=== PATIENT | male | born 1970 | race Caucasian/White ===

== ENCOUNTER 2020-05-24 13:08 | Outpatient (CLI) | payer OTHER, SELFPAY ==
--- NOTE | 2020-05-24 14:06 | CT_ITS ---
WS: [id number] CT scan of the abdomen and pelvis with IV contrast. Additional two-dimensional coronal and sagittal r econstruction was performed. 05/24/2020 Clinical Data: ACUTE ABDOMINAL PAIN Comparison: CT abdomen and pelvis, 03/02/2019. DLP: 1058.[address] scans at [facility] use at least one of these dose optimization techniques: automat ed exposure control; mA and/or kV adjustment per patient size (includes targeted exams where dose is matched to clinical indication); or iterative reconstruction. Findings: The lower lungs show no nodules, masses or effusions. There is a small hiatal hernia. The gallbladder, spleen and adrenal glands are normal. Liver shows several small low-density lesions which are probably cysts. No liver masses are noted. The head of the pancreas show swelling with a minimal amount of surrounding peripancreatic fluid. The distal pancreas shows a dilated pancreatic duct. The kidneys show equal bilateral contrast excretion with with a 3.77 left renal cortical cyst. No radha al calculi, hydronephrosis or masses are seen. The abdominal aorta is normal in size with minimal valerio cification in the wall. No abscess, adenopathy, ascites, mass, obstruction or free air is seen. No appendicitis or diverticulitis is seen. Numerous sigmoid diverticula. The stomach is normal. The s mall bowel is minimally dilated with fluid and in the loops which can be seen with a gastroenteritis or as a reaction to the pancreatitis. The colon has fecal material within. The bladder is unremarkabl e. No inguinal hernia is seen. The prostate is enlarged. No inguinal hernia is present. There is a spondylolisthesis with bilateral spondylolysis of L5-S1 of 0.[address]/CT abdomen pelvis w con* [id number] Impression: 1. Pancreatitis at the head of the pancreas with peripancreatic fluid but no ab scess or pseudocyst. 2. Dilated small bowel most likely from gastroenteritis or reaction to the liao creatitis.
[2020-05-24] MEDS: iohexol 300 mg/mL 100 mL Btl IV (14:19)
== END 2020-05-24 13:09 | disposition home or self-care (01) ==
LOC: RAD 13:13 → RADWPI 14:01
PROVIDERS: PCP Physician Assistant; Visit Provider Physician Assistant
DX: R10.9 Unspecified abdominal pain (principal); K85.90 Acute pancreatitis without necrosis or infection, unspecified
CPT/HCPCS: 74177; Q9967

== ENCOUNTER 2022-09-04 12:15 | Outpatient (CLI) | payer OTHER, SELFPAY ==
--- NOTE | 2022-09-04 | CT_ITS ---
WS: [id number] CT ABDOMEN PELVIS TECHNIQUE: Contrast-enhanced CT of the abdomen and pelvis with coronal and sagittal reformatted image s. CLINICAL INFORMATION: ALCOHOL INDUCED PANCREATITIS COMPARISON: CT May 24, 2020 and DLP: 345.[address] scans at [facility] use at least one of these dose optimization techniques: automated e xposure control; mA and/or kV adjustment per patient size (includes targeted exams where dose is matc hed to clinical indication); or iterative reconstruction. FINDINGS: Lung bases are well aerated. Hepatomegaly with coarse hepatic heterogeneous enhancement. Intrahepatic biliary ductal dilatation is progressed compared to previous. Normal portal vein and splenic vein. P ancreatic calcifications compatible with chronic pancreatitis. Dilated common bile duct measuring 13. 3 mm. Diffuse lobulated pancreatic ductal dilatation. Dominant cystic lesion involving the body of th e pancreas with dilatation of the pancreatic duct measuring. Dominant cystic lesion measures 2.9 x 2. 6 cm. Additional smaller satellite low-attenuation cystic lesions about the body and head of the panc reas suspicious for small pseudocysts. Dense calcification involving the head of the pancreas. Findin gs likely due to chronic pancreatitis. Mucinous cystic neoplasm not excluded. Consider endoscopic ult rasound in further evaluation. Mild gallbladder wall thickening and enhancement. No pericholecystic fluid. Normal spleen. Adrenal gl ands are normal. Normal renal parenchymal enhancement. Bilateral renal cysts. Portal vein and splenic vein are patent. A few prominent LEFT periaortic and retroperitoneal lymph nodes measuring up to 11 mm in short axis dimension. Adrenal glands are normal. SMV is patent. Compression of the splenic vein by the dominant cystic lesion. Additional prominent peripancreatic and mesenteric lymph nodes along the mesenteric root Diffuse bladder wall thickening. Enlarged heterogeneously enhancing prostate measuring 3.6 cm. Sigmoi d diverticulosis. No evidence of acute diverticulitis. No high-grade small or large bowel obstruction . Normal appendix in the RIGHT lower quadrant. Normal GE junction. A few prominent loops of fluid-lazara led small bowel in the pelvis with submucosal enhancement similar to previous can be seen with small bowel enteritis. Grade 1 anterolisthesis L5 on S1 measuring 5.7 mm. Bilateral spondylolysis. A few in cidental hepatic cysts. CT/CT abdomen pelvis w con* [id number] IMPRESSION: 1. Hepatomegaly with fibrofatty changes. Intrahepatic biliary ductal dilatatio n is progressed compared to previous. 2. Pancreatic calcifications compatible with chronic pancreatitis. 3. Dominant cystic lesion involving the mid body of the pancreas measuring 2.6 x 2.9 cm which appears to communicate with the pancreatic duct likely represen ting pseudocyst in the setting of chronic pancreatitis. Cystic neoplasm not ent irely excluded. Consider endoscopic ultrasound for further evaluation. 4. Diffuse dilatation of the pancreatic duct with a few additional small adjac ent cystic lesions likely pseudocysts. 5. Dilatation of the common bile duct measuring 13.3 mm This can be further ev aluated with MRCP or ERCP. 6. Tiny calcification near the cystic duct of the gallbladder suspicious for c holelithiasis. Gallbladder can be further evaluated with ultrasound. 7. Prominent mesenteric root, peripancreatic, periaortic and retroperitoneal l ymph nodes measuring 10 to 11 mm are indeterminant. 8. Fluid distended small bowel with mucosal enhancement can be seen with small bowel enteritis. This is similar to 2020 9. Prominent prostate measuring 3.6 cm. Recommend correlation PSA.
[2022-09-04] MEDS: iohexol 350 mg/mL 500 mL Btl (per mL) IV (13:26)
== END 2022-09-04 12:16 | disposition home or self-care (01) ==
PROVIDERS: PCP Physician Assistant; Visit Provider Physician Assistant
DX: K86.0 Alcohol-induced chronic pancreatitis (principal)
CPT/HCPCS: 74177; Q9967

== ENCOUNTER 2025-01-06 09:35 | Observation (INO) | payer OTHER, SELFPAY ==
--- OUTSIDE RECORDS SUMMARY | 2023-12-22 08:00 | XMS_ITS ---
Author Organization [facility] Address [address] [place] [address] Care Team Providers Care Electric Power Superintendent Name Role Phone Laura Manjarrez Primary Care Provider Fanny Dodd Unavailable [phone] Allergies Allergen (clinical drug ingredient) Drug/Non Drug Allergy documented on EMR Reaction Allergy Type Onset Date Status Substance with sulfonamide structure and antibacterial mechanism of action (substance) Sulfa Antibiotics Unknown Drug Allergy Active REASON FOR VISIT Screening for colon cancer Medications Medication SIG (Take, Route, Frequency, Duration) Notes Start Date End Date Status Vitamin D3 25 MCG (1000 UT) 1 capsule Orally Twice a day Active One Daily - 1 tablet Orally Once a day Active Morphine Sulfate ER 30 MG 1 tablet Orall y every 12 hrs Active Social History Tobacco Use: Social History Observation Description Date Details (start date - stop date) Current Smoker NA - NA xTobacco Use/Smoking Question Answer Notes Are you a current smoker How often do you smoke cigarettes? every day How many cigarettes a day do you smoke? 21-30 Encounters Encounter Location Date Provider Diagnosis [facility] [address] [place] [address] 12/22/2023 Fanny Marsh Screen for colon cancer Z12.11 Assessments Encounter Date Diagnosis (ICD Code) Assessment Notes Treatment Notes Treatment Clinical Notes Section Notes 12/22/2023 Screen for colon cancer (ICD-10 - Z12.11) Proceed with average risk colonoscopy screening today. Plan Of Treatment Treatment Notes Assessment Notes Screen for colon cancer Proceed with ave rage risk colonoscopy screening today. 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 Screening for colon cancer. * HPI: P rovider Note: Mr. Smith is a 53-year-old male patient presenting today for average risk screening colonoscopy. He has had no prior colonoscopy. 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 * ROS: G eneral - Multi System: Constitutional D enies fever, chills, body aches. . C ardiovascular D enies c hest pain, palpitations or syncope. R espiratory D enies shortness of breath. G astrointestinal S ee HPI. . * Medical History: C hronic pancreatitis. * Surgical History: E GOLD LEAF ROLLER 06/05. * Hospitalization/Major Diagno stic Procedure: [facility] . * Family History: F ather: alive. M other: alive. 1 daughter(s) - healthy. . No history of colon cancer in family. * Social History: T obacco Use: x Tobacco Use/Smoking A re you a c urrent smoker H ow often do you smoke cigarettes? e very day H ow many cigarettes a day do you smoke? 2 1-30 * Medications: T aking Morphine Sulfate ER 30 MG Tablet Extended Release 1 tablet Orally every 12 hrs , Taking One Daily - Tablet 1 tablet Orally Once a day , Taking Vitamin D3 25 MCG (1000 UT) Capsule 1 capsule Orally Twice a day * Allergies: S ulfa Antibiotics. Objective: * Vitals: * Examination: G eneral Examination: GENERAL APPEARANCE: A lert, comfortable, in no acute distress. HEART: R egular rate and rhythm.. LUNGS: N on-labored respirations. Clear bilaterally. Symmetrical.. ABDOMEN: N ormal, Soft, Non-tender, positive bowel sounds.? Assessment: * Assessment: 1. S creen for colon cancer - Z12.11 (Primary) Plan: * Treatment: * Billing Information: * Visit Code: * Procedure Codes: * Electronic signature of Akira Marsh MD on 01/06/2025 at 09:42 AM CDT Sign off status: Pending * Provider: Verna Marsh MD Date: 12/22/2023 Generated for Printi ng/Fajagrutig/eTransmitting on: 01/06/2025 09:42 AM CDT History and Physical Notes * HPI (History of Present Illness) Category Sub-Category Detail Notes Category Not es Provider Note Mr. Smith is a 53-year-old male patient presenting today for average risk screening colonoscopy. He has had no prior colonoscopy. 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 Examination Category Sub-Category Detail Notes Category Not es General Examination GENERAL APPEARANCE: Alert, c omfortable, in no acute distress HEART: Regular rate and rhy thm. LUNGS: Non-labored respirat ions. Clear bilaterally. Symmetrical. ABDOMEN: Normal, Soft, Non-te nder, positive bowel sounds
--- OUTSIDE RECORDS SUMMARY | 2024-11-17 03:00 | XMS_ITS ---
Author Organization [facility] Address [address] [place] [address] Care Team Providers Care Real Estate Legal Assistant Name Role Phone Laura Manjarrez Primary Care Provider Fanny Dodd Unavailable [phone] REASON FOR VISIT 1 year F/U-Alcohol Induced Chronic Pancreatitis Encounters Encounter Location Date Provider Diagnosis [facility] [address] [place] [address] 11/17/2024 Fanny Marsh Plan Of Treatment No Information Progress Notes * LUISAsh TDOB:[birth year] (54 yo M)Acc No.[id number]:11/17/2024 Progress Notes Patient: Ash LUCAS Provider: Verna Marsh MD :1970 A ge:54 Y S ex:Male Date:11/17/2024 Address:[address], [address], [id number] Pcp:JANE Swan Subjective: * Chief Complaints: * 1 . 1 year F/U-Alcohol Induced Chronic Pancreatitis. * Medical History: Objective: * Vitals: Assessment: Plan: * Treatment: * Billing Information: * Visit Code: * Procedure Codes: * Electronic signature of Akira Marsh MD on 01/06/2025 at 09:43 AM CDT Sign off status: Pending * Provider: Verna Marsh MD Date: 11/17/2024 Generated for Rogei johnny/Katty/eTransmitting on: 01/06/2025 09:43 AM CDT
[2025-01-06] VITALS (11 sets, daily range): BP systolic 100–132; BP diastolic 66–94; PULSE 77–87; RESP 16–18; TEMP 36.6–36.7; O2SAT 94–100; BMI 13.5
--- OUTSIDE RECORDS SUMMARY | 2025-01-06 09:43 | XMS_ITS | Patient Health Record ---
Author Organization [facility] Address [address] [place] [address] Care Team Providers Care Theatrical Performer Name Role Phone Laura Manjarrez Primary Care Provider Fanny Dodd Unavailable [phone] Allergies Allergen (clinical drug ingredient) Drug/Non Drug Allergy documented on EMR Reaction Allergy Type Onset Date Status Substance with sulfonamide structure and antibacterial mechanism of action (substance) Sulfa Antibiotics Unknown Drug Allergy Active Reason For Referral No Information Medications Medication SIG (Take, Route, Frequency, Duration) Notes Start Date End Date Status Vitamin D3 25 MCG (1000 UT) 1 capsule Orally Twice a day Active One Daily - 1 tablet Orally Once a day Active Morphine Sulfate ER 30 MG 1 tablet Orall y every 12 hrs Active Golytely 236 GM Take ml as directed Orally split dose for 2 days 11/12/2023 Active Reglan 10 MG 1 tablet Orally Once for 1 days 11/12/2023 Active Social History Tobacco Use: Social History Observation Description Date Details (start date - stop date) Current Smoker NA - NA xTobacco Use/Smoking Question Answer Notes Are you a current smoker How often do you smoke cigarettes? every day How many cigarettes a day do you smoke? 21-30 Alcohol Screen (Audit-C) Question Answer Notes Did you have a drink containing alcohol in the p ast year? 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 Problem 308217975 Encounter for removal of biliary stent (Z46.89) Active confirmed Problem 032852279 Pancreatic pseudocyst (K86.3) Active confirmed Problem 668449466 Biliary stricture (K83.1) Active confirmed Encounters Encounter Location Date Provider Diagnosis [facility] [address] [place] [address] 01/12/2024 Fanny Marsh Plan Of Treatment Pending Test Test Name Order Date CA 19-9 [id number] 11/12/2023 Pancreatic Elastase Fecal--98932 024 Colonoscopy, Average Risk Screening-G012 1 11/12/2023 ERCP with Stent Removal or Change 2023 Future Test Test Name Order Date Hepatic Function Panel 93681 01/02/2024 Insurance Providers Payer Name Payer Address Payer Phone Subscriber Number Group Number Insured Name Patient Relationship to Insured Coverage Start Date Coverage End Date [employer] [address] [place] [phone] [id number] Ash Smith Self - patient is the insured Medical (General) History Medical History History ICD Code chronic pancreatitis Surgical History Surgery Date(Month/Year) ERCP 06/05 Hospitalization History Reason Date(Month/Year) [facility]
[2025-01-06] MEDS: sodium chloride 0.9% 1,000 ML 999 ML IV (09:50)
--- NOTE | 2025-01-06 09:55 | PC.PHAR ---
Addendum entered by Nadia Bundy 01/06/25 10:05: Laura Hewitt nurse is faxing pt information and previous medications pt stated he was taking from yesterday's visit. Original Note: Pt states Dr Hewitt will be prescribing several more medications.
--- NOTE | 2025-01-06 09:56 | ED_ITS ---
HPI - General Adult 2 General: Chief complaint: General Medical Stated complaint: HIGH BLOOD SUGAR Time Seen by Provider: 01/06/25 09:37 History of Present Illness: 54-year-old man with a history of chroni c pancreatitis who presents the emergency room with concerns for hyperglycemia. He says he has not knowing that he has high blood sugars or diabetes previous to this. He says labs were done in clinic yesterday and he was told today that his sugar was greater than 1000. He actually called the ambulance for lift assist but then ended up coming to the emergency room because of the sugars. Overall he says he does not feel ill at this point. No new pain complaints. No vomiting. Related Data Home Medications ?Medication ?Instructions ?Recorded ?Confirmed ascorbic acid (vitamin C) 500 mg 500 mg PO DAILY 01/0601/06/25 tablet (Vitamin C) aspirin 81 mg tablet,delayed 81 mg PO DAILY 01/06/25 0 01/06/25 release cholecalciferol (vitamin D3) 25 25 mcg PO DAILY 01/06/25 mcg (1,000 unit) tablet (Vitamin D3) hydrocodone 10 mg-acetaminophen 1 tab PO DAILY PRN Jennifer n 01/06/25 01/06/25 325 mg tablet insulin glargine 100 unit/mL (3 10 unit SUBCUT BEDTIME 01/06/25 01/06/25 mL) subcutaneous pen methocarbamol 500 mg tablet 1,000 mg PO Q6H PRN muscle spasms 01/06/25 01/06/25 Allergies Allergy/AdvReac Type Severity Reaction Status Date / Time No Known Allergies Allergy Verified 01/06/25 09:41 Review of Systems 2 Narrative: Constitutional symptoms: Negative except as documented in HPI. Skin symptoms: Negative except as documented in HPI. Eye symptoms: Negative except as documented in HPI. ENMT symptoms: Negative except as documented in HPI. Respiratory symptoms: Negative except as documented in HPI. Cardiovascular symptoms: Negative except as documented in HPI. Gastrointestinal symptoms: Negative except as documented in HPI. Genitourinary symptoms: Negative except as documented in HPI. Musculoskeletal symptoms: Negative except as documented in HPI. Neurologic symptoms: Negative except as documented in HPI. Psychiatric symptoms: Negative except as documented in HPI. Endocrine symptoms: Negative except as documented in HPI. Physical Exam 2 Narrative: EXAM NARRATIVE: General: Alert, no acute distress. Cachectic appearing Skin: Warm, dry. Head: Normocephalic, atraumatic. Neck: Supple, trachea midline. Eye: Extraocular movements are intact. Ears, nose, mouth and throat: mucosa moist. Cardiovascular: Regular, Normal peripheral perfusion. Respiratory: Lungs are clear to auscultation, respirations are non-labored, breath sounds are equal, Symmetrical chest wall expansion. Gastrointestinal: Soft, Nontender, Non distended Musculoskeletal: Normal ROM, no deformity. Neurological: Alert and oriented, No focal neurological deficit observed. Psychiatric: Cooperative, appropriate mood & affect. Course 2 Vital Signs: Vital signs: Vital Signs Temperature 98.1 F 01/06/25 09:37 Pulse Rate 87 01/06/25 09:37 Respiratory Rate 18 01/06/25 09:37 Blood Pressure 117/80 01/06/25 09:37 Pulse Oximetry 100 01/06/25 09:37 Oxygen Delivery Me thod Room Air 01/06/25 09:37 MDM - General Adult Medical Decision Making Medical decision making: Differential diagnosis for the patient with hyperglycemia would include but not be limited to and would be based on the above HPI review of systems and physical exam: DKA. Dehydration. Renal failure. Concern for electrolyte abnormalities. Concern for underlying infection that might result in hyperglycemia. Medical non-compliance. Orders placed to evaluate differential diagnosis of the patient with hyperglycemia are based on the above differential, HPI and physical exam. Lab Review: Laboratory results were reviewed and interpreted by myself the emergency room physician. No leukocytosis. No anemia. No renal failure. Glucose is 474. Ketone positive. However blood gas is not acidotic. 7.38/41/85. I reviewed the patient's medical record. Records were sent with the patient. His hemoglobin A1c was 13.6. I spoke with his PCP who says that it was 5 just 6 months ago. With his history of pancreatic issues and him being thin and not obese concerned that this is pancreatic insufficiency more like a type 1 diabetes. Reexamination: 1 L of fluids and 10 units of insulin were given. No focal motor deficits no altered mental status. Consultation: I spoke with the patient's primary care provider. She is requesting that the patient be admitted, primarily for education and initiation of sliding scale insulin and long-acting insulin. Also he could probably use some further hydration and to get a little better control of his glucose. Consultation: Spoke with Dr. Marcos who agrees to observe the patient overnight and hopefully we can get some education and get him started on appropriate insulin regimen. Assessment and plan: New onset diabetes Hyperglycemia Dehydration ?1 L normal saline bolus. 10 units IV insulin. -I discussed the patient with the hospitalist on-call who is admitting the patient. - Discussed findings and plan with patient. Answered any questions. - All laboratory values were reviewed and interpreted personally by myself, the ER physician - All imaging was reviewed and interpreted personally by myself, the ER physician. - Evaluation and treatment of this problem were appropriate in the emergency setting Lab Data 01/06/25 10:07 01/06/25 10:07 Laboratory Results WBC 8.56 10^3/uL (3.29-11.43) 01/06/25 10:07 RBC 4.12 10^6/uL (3.85-5.65) 01/06/25 10:07 Hgb 12.10 g/dL (11.27-16.99) 01/06/25 10:07 Hct 37.6 % (37-53) 01/06/25 10:07 MCV 91.3 fl (82-101) 01/06/25 10:07 MCH 29.4 pg (27-33) 01/06/25 10:07 MCHC 32.2 g/dL (30-55) 01/06/25 10:07 RDW 14.6 % (12.1-15.1) 01/06/25 10:07 Plt Count 303 10^3/cmm (157-399) 01/06/25 10:07 MPV 11.4 fL (7.4-10.4) H 01/06/25 10:07 Neut % (Auto) 73.2 % 01/06/25 10:07 Lymph % (Auto) 18.5 % 01/06/25 10:07 Armstrong % (Auto) 6.4 % 01/06/25 10:07 Eos % (Auto) 0.7 % 01/06/25 10:07 Baso % (Auto) 0.6 % 01/06/25 10:07 Neut # (Auto) 6.27 10^3/uL (1.8-7.7) 01/06/25 10:07 Lymph # (Auto) 1.6 10^3/uL (0.8-4.8) 01/06/25 10:07 Armstrong # (Auto) 0.6 10^3/uL (0.2-0.9) 01/06/25 10:07 Eos # (Auto) 0.1 10^3/uL (0.0-0.8) 01/06/25 10:07 Baso # (Auto) 0.1 10^3/uL (0.0-0.1) 01/06/25 10:07 Nucleated RBC % (auto) 0 % 01/06/25 10:07 Nucleated RBCs # 0.0 /100WBC 01/06/25 10:07 Specimen Type Arterial 01/06/25 10:16 Sample Site Radial, left 01/06/25 10:16 ABG pH 7.38 (7.35-7.45) 01/06/25 10:16 ABG pCO2 41.3 mmHg (35-45) 01/06/25 10:16 ABG pO2 85.2 mmHg (80.0-100.0) 01/06/25 10:16 ABG PO2/FiO2 Ratio 405 01/06/25 10:16 ABG HCO3 24.6 mmol/L (22-26) 01/06/25 10:16 ABG O2 Saturation 98.2 01/06/25 10:16 ABG Base Excess -0.5 mmol/L (-2.0-2.0) 01/06/25 10:16 Sandeep Test Pos 01/06/25 10:16 A-a O2 Gradient 1.7 mmHg (5-10) L 01/06/25 10:16 Hematocrit 33.2 % (42-52) L 01/06/25 10:16 Hgb O2 Saturation 83.5 % (95-100) L 01/06/25 10:16 Carboxyhemoglobin 14.7 %THgb (0.4-20.1) 01/06/25 10:16 Methemoglobin 0.2 % (0.4-1.5) L 01/06/25 10:16 Total Hemoglobin 10.8 g/dL (14-18) L 01/06/25 10:16 Sodium 134.0 mmol/L (131-143) 01/06/25 10:16 Potassium 3.5 mmol/L (3.5-5.0) 01/06/25 10:16 Glucose 428.0 mg/dL (70-115) H 01/06/25 10:16 Ionized Calcium 1.2 mmol/L (1.1-1.4) 01/06/25 10:16 O2 Delivery Device Room air 01/06/25 10:16 FiO2 21.0 % 01/06/25 10:16 [employer] Teacher ID glc 01/06/25 10:16 Sodium 133 mmol/L (136-145) L 01/06/25 10:07 Potassium 4.5 mmol/L (3.5-5.1) 01/06/25 10:07 Chloride 89 mmol/L (98-107) L 01/06/25 10:07 Carbon Dioxide 24 mmol/L (22-29) 01/06/25 10:07 Anion Gap 24.5 (5-19) H 01/06/25 10:07 BUN 10 mg/dL (6-20) 01/06/25 10:07 Creatinine 0.6 mg/dL (0.7-1.2) L 01/06/25 10:07 GFR Calculation 140.9 mL/min (90-130) H 01/06/25 10:07 Glucose 474 mg/dL (65-115) H 01/06/25 10:07 Calculated Osmolality 296 mOsm/kg (285-295) H 01/06/25 10:07 Lactic Acid 1.3 mmol/L (0.5-2.2) 01/06/25 10:07 Calcium 9.9 mg/dL (8.5-10.5) 01/06/25 10:07 Total Bilirubin 0.4 mg/dL (0.15-1.2) 01/06/25 10:07 AST 13 U/L (0-40) 01/06/25 10:07 ALT 18 U/L (0-41) 01/06/25 10:07 Alkaline Phosphatase 73 U/L (40-130) 01/06/25 10:07 C-Reactive Protein 99.1 mg/L (0.0-4.9) H 01/06/25 10:07 Total Protein 7.5 g/dL (6.6-8.7) 01/06/25 10:07 Albumin 3.8 g/dL (3.5-5.2) 01/06/25 10:07 Globulin 3.7 g/dL (1.3-4.6) 01/06/25 10:07 Lipase 86 U/L (13-60) H 01/06/25 10:07 Serum Ketones Positive (Negative) H 01/06/25 10:07 No radiology studies performed this visit Discharge Plan Discharge Patient Disposition: Admitted As Inpatient Admit Provider: Chino Grant Clinical Impression: Hyperglycemia, Diabetes mellitus, new onset Condition: Stable Discharge Diet: As Directed Coding Level of Care Code ED Family Lawyer for Dell Hudson
[2025-01-06 10:14] LABS: Basophils # 0.1 10^3/uL (0.0-0.1); Basophils % 0.6 %; Eosinophils # 0.1 10^3/uL (0.0-0.8); Eosinophils % 0.7 %; Hematocrit 37.6 % (37-53); Lymphocytes # 1.6 10^3/uL (0.8-4.8); Lymphocytes % 18.5 %; Mean Corpuscular HGB Conc 32.2 g/dL (30-55); Mean Corpuscular Hemoglobin 29.4 pg (27-33); Mean Corpuscular Volume 91.3 fl (82-101); Mean Platelet Volume 11.4 fL (7.4-10.4); Monocytes # 0.6 10^3/uL (0.2-0.9); Monocytes % 6.4 %; Neutrophils # 6.27 10^3/uL (1.8-7.7); Neutrophils % 73.2 %; Nucleated Red Blood Cells % 0 %; Platelet Count 303 10^3/cmm (157-399); Red Blood Count 4.12 10^6/uL (3.85-5.65); Red Cell Distribution Width 14.6 % (12.1-15.1); White Blood Count 8.56 10^3/uL (3.29-11.43)
[2025-01-06 10:28] LABS: ABG PCO2 41.3 mmHg (35-45); ABG PH Result 7.38 (7.35-7.45); Alveolar-Arterial Oxygen Gradi 1.7 mmHg (5-10); Arterial Blood Gas Hematocrit 33.2 % (42-52); Base Excess ABG -0.5 mmol/L (-2.0-2.0); Blood Gas Allen Test Pos; Blood Gas Operator Identificat glc; Blood Gas Sample Site Radial, left; Blood Gas Sample Type Arterial; Carboxyhemoglobin 14.7 %THgb (0.4-20.1); HCO3 ABG 24.6 mmol/L (22-26); HGB O2 Sat 83.5 % (95-100); Ionized Calcium Level - ABG 1.2 mmol/L (1.1-1.4); Methemoglobin 0.2 % (0.4-1.5); Oxygen Device ROOM AIR; Oxygen Saturation ABG 98.2; PO2 ABG 85.2 mmHg (80.0-100.0); PO2 FiO2 Ratio Arterial Blood 405; Potassium Level - ABG 3.5 mmol/L (3.5-5.0); Total Hemoglobin 10.8 g/dL (14-18)
[2025-01-06 10:29] LABS: Ketone (Acetest) Serum Positive (Negative)
[2025-01-06 10:35] LABS: Lactic Sepsis W/Reflex 1.3 mmol/L (0.5-2.2)
[2025-01-06 10:36] LABS: Alanine Aminotransferase 18 U/L (0-41); Albumin Level 3.8 g/dL (3.5-5.2); Alkaline Phosphatase 73 U/L (40-130); Anion Gap 24.5 (5-19); Aspartate Amino Transferase 13 U/L (0-40); Blood Urea Nitrogen 10 mg/dL (6-20); C Reactive Protein 99.1 mg/L (0.0-4.9); Calcium 9.9 mg/dL (8.5-10.5); Carbon Dioxide 24 mmol/L (22-29); Chloride 89 mmol/L (98-107); Globulin 3.7 g/dL (1.3-4.6); Glomerular Filtration Rate 140.9 mL/min (90-130); Glucose 474 mg/dL (65-115); Lipase 86 U/L (13-60); Osmolality Calculated 296 mOsm/kg (285-295); Potassium 4.5 mmol/L (3.5-5.1); Sodium 133 mmol/L (136-145); Total Bilirubin 0.4 mg/dL (0.15-1.2); Total Protein 7.5 g/dL (6.6-8.7)
[2025-01-06 11:56] LABS: Glucose Point of Care 415 mg/dL (70-110)
[2025-01-06] MEDS: insulin regular-human 100 units/1 mL 10 UNIT IVP (11:57)
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
[2025-01-06] MEDS: enoxaparin 40 mg/0.4 mL Syringe SUBCUT (16:08)
[2025-01-06] MEDS: insulin glargine 100 units/1 mL 10 UNIT SUBCUT (16:08)
[2025-01-06] MEDS: lactated ringers 1,000 ML 75 ML IV (16:08)
[2025-01-06 16:26] LABS: Glucose Point of Care 214 mg/dL (70-110)
[2025-01-06] MEDS: insulin lispro 100 unit/1 mL SUBCUT ×2 (17:12→21:21)
[2025-01-06 20:43] LABS: Glucose Point of Care 322 mg/dL (70-110)
[2025-01-07 01:10] VITALS: BP 101/63; PULSE 86; RESP 15; TEMP 36.8; O2SAT 92
[2025-01-07] MEDS: lactated ringers 1,000 ML 75 ML IV (04:00)
[2025-01-07 05:31] VITALS: BP 103/68; PULSE 81; RESP 15; TEMP 36.6; O2SAT 96
[2025-01-07 06:47] LABS: Glucose Point of Care 94 mg/dL (70-110)
[2025-01-07 06:52] LABS: Basophils % 0.3 %; Eosinophils # 0.1 10^3/uL (0.0-0.8); Eosinophils % 0.5 %; Hematocrit 31.3 % (37-53); Lymphocytes # 2.2 10^3/uL (0.8-4.8); Lymphocytes % 22.7 %; Mean Corpuscular HGB Conc 32.6 g/dL (30-55); Mean Corpuscular Hemoglobin 29.1 pg (27-33); Mean Corpuscular Volume 89.2 fl (82-101); Mean Platelet Volume 11.6 fL (7.4-10.4); Monocytes # 0.8 10^3/uL (0.2-0.9); Monocytes % 8.3 %; Neutrophils # 6.56 10^3/uL (1.8-7.7); Neutrophils % 67.6 %; Nucleated Red Blood Cells % 0 %; Platelet Count 261 10^3/cmm (157-399); Red Blood Count 3.51 10^6/uL (3.85-5.65); Red Cell Distribution Width 14.5 % (12.1-15.1); White Blood Count 9.72 10^3/uL (3.29-11.43)
[2025-01-07 07:25] LABS: Anion Gap 14.3 (5-19); Blood Urea Nitrogen 7 mg/dL (6-20); Carbon Dioxide 27 mmol/L (22-29); Chloride 98 mmol/L (98-107); Creatinine Clr Calc Pharmacy 135.6535; Glucose 73 mg/dL (65-115); Osmolality Calculated 279 mOsm/kg (285-295); Potassium 3.3 mmol/L (3.5-5.1); Sodium 136 mmol/L (136-145)
[2025-01-07 07:37] VITALS: BP 110/73; PULSE 85; TEMP 36.8; O2SAT 92
[2025-01-07] MEDS: insulin glargine 100 units/1 mL 10 UNIT SUBCUT (08:13)
[2025-01-07] MEDS: potassium chloride ER 20 mEq Tablet PO (08:24)
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
[2025-01-07 10:58] VITALS: BP 105/72; PULSE 82; O2SAT 91
[2025-01-07 11:11] LABS: Glucose Point of Care 170 mg/dL (70-110)
--- NOTE | 2025-01-07 11:47 | PC.NURSE ---
It was noted during d/c process that medications were sent to the incorrect pharmacy, [facility] rather than [facility] per patient's request. I called and spoke with [facility] pharmacy at 1137 and asked them to cancel the Rx they received, which they stated they would as they hadn't started working on them yet. I called and spoke with Caroline Lechuga, pharmacist with [facility] and provided the following orders verbally on behalf of Dr. Grant after verifying dose of Humalog: Humalog per sliding scale read verbally to Caroline and read back per protocol, [facility]. glucometer supplies for accucheck PRN when needing to verify results from monitor, and changed dose of Insulin Glargine to 8 units from 10 units original Rx. Caroline read back all orders per protocol and states she will start working on these. Patient may go to d/c lounge and await Rx to be delivered.
[2025-01-07 12:35] VITALS: BP 105/72; PULSE 82; RESP 16; TEMP 36.2; O2SAT 91
== END 2025-01-07 12:37 | disposition home or self-care (01) ==
LOC: ER 10:48 → ER IP 11:28 → MEDSURG 14:55
PROVIDERS: Admitting Provider Internal Medicine; Emergency Provider Emergency Medicine; PCP Physician Assistant; Visit Provider Internal Medicine
DX: E11.9 Type 2 diabetes mellitus without complications (principal); E43 Unspecified severe protein-calorie malnutrition; Z68.1 Body mass index [BMI] 19.9 or less, adult; E86.0 Dehydration; Z79.82 Long term (current) use of aspirin; F17.210 Nicotine dependence, cigarettes, uncomplicated
CPT/HCPCS: 36415; 36416; 36600; 80048; 80051; 80053; 82009; 82330; 82805; 82962; 83605; 83690; 85025; 86140; 96372; 96374; 99285; G0378; J1650; J1815; J7030; J7120; J9999